=== PATIENT | female | born 1990 | race American Indian/Alaskan Native ===

== ENCOUNTER 2016-02-26 21:41 | Outpatient (CLI) | payer SELFPAY ==
[2016-02-26] MEDS ORDERED: LACTATED RINGERS 500 ML IV ONE (22:19)
[2016-02-26 22:55] LABS: Bilirubin,Urine NEG (Negative); Blood,Urine NEG (Negative); Ketones,Urine NEG (Negative); Leukocyte Esterase,Urine NEG (Negative); Mucus,Urine 3+ /HPF; Nitrite,Urine NEG (Negative); Protein,Urine <15 mg/dL mg/dL (Negative); Urobilinogen,Urine < 2.0 mg/dL (<2.0)
[2016-02-27] MEDS ORDERED: LACTATED RINGERS 1,000 ML IV SCH
[2016-02-27 00:15] VITALS: BP 113/69
[2016-02-27] MEDS: BRETHINE SUB-Q PRN ×2 (00:15→00:48)
--- NOTE | 2016-02-27 07:42 | Ultrasound Report ---
BIOPHYSICAL PROFILE: History: well-being. Technique: Transabdominal ultrasound with Doppler interrogation. 2 - breathing movements 2 - movements 2 - posture and tone 2 - Qualitative amniotic fluid volume 8 - TOTAL SCORE OF POSSIBLE 8 Heart Rate (bpm) 138
--- NOTE | 2016-02-27 07:42 | Ultrasound Report ---
OB LIMITED History: well-being, rupture of membranes. Technique: Transabdominal ultrasound with Doppler interrogation. Gestation: Davidson Amniotic Fluid: Normal MIRIAM = 23.7 cm Heart Rate: 144 BPM
== END 2016-02-27 01:24 | disposition home or self-care (01) ==
LOC: TRG 21:41
PROVIDERS: ATTEND Obstetrics & Gynecology
DX: O47.03 False labor before 37 completed weeks of gestation, third trimester (principal); Z3A.28 28 weeks gestation of pregnancy
CPT/HCPCS: 76815; 76819; 81001; J3105; J7120

== ENCOUNTER 2016-09-25 19:50 | Emergency (ER) | payer MEDICAID, OTHER ==
[2016-09-25 20:20] LABS: Basophils % (Auto) 0.6 % (0.0-1.8); Eosinophils % (Auto) 0.5 % (0.0-4.3); Hematocrit 31.8 % (30.3-42.9); Hemoglobin 10.4 gm/dl (10.1-14.3); Mean Corpuscular HGB Conc 33 % (30-34); Platelet Count 358 K/mm3 (140-440); Red Blood Count 4.64 M/mm3 (3.65-5.03); White Blood Count 7.4 K/mm3 (4.5-11.0)
[2016-09-25 20:27] LABS: Mean Corpuscular Hemoglobin 22 pg (28-32); Mean Corpuscular Volume 69 fl (79-97)
[2016-09-25 20:28] LABS: Red Cell Distribution Width 20.1 % (13.2-15.2)
[2016-09-25 20:41] LABS: Alanine Aminotransferase 8 units/L (7-56); Albumin 4.1 g/dL (3.9-5); Alkaline Phosphatase 49 units/L (35-129); Anion Gap 18 mmol/L; Bilirubin,Total < 0.20 mg/dL (0.1-1.2); Blood Urea Nitrogen 6 mg/dL (7-17); Calcium 9.5 mg/dL (8.4-10.2); Carbon Dioxide 22 mmol/L (22-30); Chloride 102.4 mmol/L (98-107); Glucose 92 mg/dL (65-100); Potassium 3.9 mmol/L (3.6-5.0); Sodium 138 mmol/L (137-145); Total Protein 8.1 g/dL (6.3-8.2)
[2016-09-25 23:49] LABS: Bilirubin,Urine NEG (Negative); Blood,Urine NEG (Negative); Ketones,Urine NEG (Negative); Leukocyte Esterase,Urine TR (Negative); Mucus,Urine 3+ /HPF; Nitrite,Urine NEG (Negative); Protein,Urine <15 mg/dL mg/dL (Negative); Urobilinogen,Urine < 2.0 mg/dL (<2.0)
--- NOTE | 2016-09-26 00:30 | Emergency Department Report ---
ED Abdominal Pain HPI - General Chief Complaint: Abdominal Pain Stated Complaint: N/V 8 WEEKS Time Seen by Provider: 09/26/16 00:06 Source: patient Mode of arrival: Ambulatory Limitations: No Limitations - History of Present Illness Initial Comments: 26-year-old female here with abdominal pain. States she is approximately 8 weeks . No vaginal bleeding or vaginal discharge. MD Complaint: abdominal pain Location: diffuse Radiation: none Migration to: no migration Severity scale (0 -10): 0 - Related Data Previous Rx's Medication Instructions Recorded Last Taken Type Ondansetron [Zofran Odt] 4 mg PO Q6HR PRN #12 tab.rapdis 09/26/16 Unknown Rx Allergies Allergy/AdvReac Type Severity Reaction Status Date / Time luna flavor Allergy Swelling Verified 09/25/16 20:00 peanut Allergy Angioedema Verified 09/25/16 20:00 procaine HCl [From Novocain] Allergy Hives Verified 02/26/16 22:23 shellfish derived Allergy Angioedema Verified 09/25/16 20:00 ED Review of Systems ROS: Stated complaint: N/V 8 WEEKS Other details as noted in HPI Comment: All other systems reviewed and negative Constitutional: denies: chills, fever Eyes: denies: eye pain, eye discharge, vision change ENT: denies: ear pain, throat pain Respiratory: denies: cough, shortness of breath, wheezing Cardiovascular: denies: chest pain, palpitations Endocrine: no symptoms reported Gastrointestinal: denies: abdominal pain, nausea, diarrhea Genitourinary: denies: urgency, dysuria, discharge Musculoskeletal: denies: back pain, joint swelling, arthralgia Skin: denies: rash, lesions Neurological: denies: headache Hematological/Lymphatic: denies: easy bleeding, easy bruising ED Past Medical Hx - Past Medical History Previous Medical History?: Yes Hx Hypertension: No Hx Diabetes: No Hx Deep Vein Thrombosis: No Hx Renal Disease: No Hx Sickle Cell Disease: No Hx Seizures: No Hx Asthma: Yes (ventolin inhaler- last used 1 mo ago) Hx HIV: No - Surgical History Past Surgical History?: No - Social History Smoking Status: Never Smoker Substance Use Type: None - Medications Home Medications: Home Medications Medication Instructions Recorded Confirmed Last Taken Type Ondansetron [Zofran Odt] 4 mg PO Q6HR PRN #12 tab.rapdis 09/26/16 Unknown Rx ED Physical Exam - General Limitations: No Limitations General appearance: alert, in no apparent distress - Head Head exam: Present: atraumatic, normocephalic - Eye Eye exam: Present: normal appearance. Absent: scleral icterus, conjunctival injection - ENT ENT exam: Present: mucous membranes moist - Neck Neck exam: Present: normal inspection. Absent: lymphadenopathy - Respiratory Respiratory exam: Present: normal lung sounds bilaterally. Absent: respiratory distress - Cardiovascular Cardiovascular Exam: Present: regular rate, normal rhythm. Absent: systolic murmur, diastolic murmur, rubs, gallop - GI/Abdominal GI/Abdominal exam: Present: soft, normal bowel sounds. Absent: distended, tenderness, guarding, rebound - Extremities Exam Extremities exam: Present: normal inspection - Back Exam Back exam: Present: normal inspection - Neurological Exam Neurological exam: Present: alert, oriented X3 - Psychiatric Psychiatric exam: Present: normal affect, normal mood - Skin Skin exam: Present: warm, dry, intact, normal color. Absent: rash ED Course Vital Signs 09/25/16 09/25/16 20:00 23:31 Temperature 98.4 F 98.6 F Pulse Rate 83 88 Respiratory 18 18 Rate Blood Pressure 121/83 126/87 O2 Sat by Pulse 100 100 Oximetry ED Medical Decision Making - Lab Data Result diagrams: 09/25/16 20:09 09/25/16 20:09 Laboratory Results - last 24 hr 09/25/16 09/25/16 09/25/16 20:09 20:09 20:09 WBC 7.4 RBC 4.64 Hgb 10.4 Hct 31.8 MCV 69 L MCH 22 L MCHC 33 RDW 20.1 H Plt Count 358 Lymph % (Auto) 24.2 [place] % (Auto) 7.6 H Eos % (Auto) 0.5 Baso % (Auto) 0.6 Lymph # 1.8 [place] # 0.6 Eos # 0.0 Baso # 0.0 Seg Neutrophils % 67.1 Seg Neutrophils # 5.0 Sodium 138 Potassium 3.9 Chloride 102.4 Carbon Dioxide 22 Anion Gap 18 BUN 6 L Creatinine 0.4 L Estimated GFR > 60 BUN/Creatinine Ratio 15.00 Glucose 92 Calcium 9.5 Total Bilirubin < 0.20 AST 12 ALT 8 Alkaline Phosphatase 49 Total Protein 8.1 Albumin 4.1 Albumin/Globulin Ratio 1.0 HCG, Quant [id number] H Urine Color Urine Turbidity Urine pH Ur Specific [place] Urine Protein Urine Glucose (UA) Urine Ketones Urine Blood Urine Nitrite Urine Bilirubin Urine Urobilinogen Ur Leukocyte Esterase Urine WBC (Auto) Urine RBC (Auto) U Epithel Cells (Auto) Urine Mucus 09/25/16 Unknown WBC RBC Hgb Hct MCV MCH MCHC RDW Plt Count Lymph % (Auto) [place] % (Auto) Eos % (Auto) Baso % (Auto) Lymph # [place] # Eos # Baso # Seg Neutrophils % Seg Neutrophils # Sodium Potassium Chloride Carbon Dioxide Anion Gap BUN Creatinine Estimated GFR BUN/Creatinine Ratio Glucose Calcium Total Bilirubin AST ALT Alkaline Phosphatase Total Protein Albumin Albumin/Globulin Ratio HCG, Quant Urine Color Yellow Urine Turbidity Clear Urine pH 6.0 Ur Specific [place] 1.028 Urine Protein <15 mg/dl Urine Glucose (UA) Neg Urine Ketones Neg Urine Blood Neg Urine Nitrite Neg Urine Bilirubin Neg Urine Urobilinogen < 2.0 Ur Leukocyte Esterase Tr Urine WBC (Auto) 2.0 Urine RBC (Auto) 3.0 U Epithel Cells (Auto) 5.0 Urine Mucus 3+ - Medical Decision Making 26-year-old female here with intermittent nausea and abdominal pain. States she believes she is 8 weeks . Exam is unremarkable. Ultrasound shows 8 week 6 day gestation. Heart rate 187. She's had no vaginal bleeding or vaginal discharge. I will plan to give her a dose of IV fluids and IV Zofran anticipate discharge. Critical care attestation.: If time is entered above; I have spent that time in minutes in the direct care of this critically ill patient, excluding procedure time. ED Disposition Clinical Impression: Hyperemesis gravidarum Disposition: DC-01 TO HOME OR SELFCARE Is pt being admited?: No Condition: Stable Instructions: Abdominal Pain (ED), Hyperemesis Gravidarum (ED) Additional Instructions: Follow-up with your kindergarten prep teacher in the next 2 or 3 days. Please start taking a vitamin. Prescriptions: Ondansetron [Zofran Odt] 4 mg PO Q6HR PRN #12 tab.rapdis PRN Reason: Nausea And Vomiting Referrals: PRIMARY CARE, [Primary Care Provider] - 3-5 Days
--- NOTE | 2016-09-26 01:12 | Ultrasound Report ---
FINAL REPORT PROCEDURE: US OB TRANSVAGINAL TECHNIQUE: Real-time transvaginal sonography of the uterus, placenta, amniotic fluid, adnexa, and fetus was performed with image documentation. Measurements were obtained to determine age/size. M-mode Doppler was used to document heartbeat. CPT 58509 HISTORY: abdominal pain in COMPARISON: No prior studies are available for comparison. FINDINGS: CRL: 22mm, which corresponds to a gestational age of: 8weeks, 6 days. Yolk Sac: Normal. Embryonic Cardiac Activity: 187 beats per minute Gestational Sac: There is a 3.6 x 2 x 1.1 centimeter subchorionic hematoma. Right Ovary: Normal. Left Ovary: Normal. Estimated delivery date: 05/02/2017 Comment: Complete anatomic survey at 18-20 weeks suggested. IMPRESSION: 1. Single living intrauterine gestation at approximately 8 weeks and 6 days 2. EDC by US 05/02/2017.
--- NOTE | 2016-09-26 01:13 | Ultrasound Report ---
FINAL REPORT PROCEDURE: US OB TRANSABDOMINAL TECHNIQUE: Real-time transabdominal sonography of the uterus, placenta, amniotic fluid, adnexa, and fetus was performed with image documentation. Measurements were obtained to determine age/size. M-mode Doppler was used to document heartbeat. HISTORY: abdominal pain in COMPARISON: No prior studies are available for comparison. FINDINGS: CRL: 22mm, which corresponds to a gestational age of: 8weeks, 6 days. Yolk Sac: Normal. Embryonic Cardiac Activity: 187 beats per minute Gestational Sac: There is a 3.6 x 2 x 1.1 centimeter subchorionic hematoma. Right Ovary: Normal. Left Ovary: Normal. Estimated delivery date: 05/02/2017 Comment: Complete anatomic survey at 18-20 weeks suggested. IMPRESSION: 1. Single living intrauterine gestation at approximately 8 weeks and 6 days 2. EDC by US 05/02/2017.
[2016-09-26] MEDS ORDERED: NACL 0.9% 1000 ML 1,000 ML IV ONE (02:02)
[2016-09-26] MEDS ORDERED: ZOFRAN IV ONE (02:02)
[2016-09-26 02:46] VITALS: BP 107/68
== END 2016-09-26 03:32 | disposition home or self-care (01) ==
LOC: ED 19:50
DX: O21.0 Mild hyperemesis gravidarum (principal); Z88.8 Allergy status to other drugs, medicaments and biological substances; Z91.018 Allergy to other foods; Z91.013 Allergy to seafood; Z3A.08 8 weeks gestation of pregnancy
CPT/HCPCS: 36415; 76801; 76817; 80053; 81001; 84702; 85025; 96361; 96374; 99284; J2405; J7030

== ENCOUNTER 2017-02-19 11:22 | Emergency (ER) | payer OTHER ==
[2017-02-19 12:49] VITALS: BP 97/63
[2017-02-19] MEDS ORDERED: TYLENOL PO ONE (12:49)
--- NOTE | 2017-02-19 13:39 | Emergency Department Report ---
HPI - General Chief Complaint: Extremity Injury, Upper Time Seen by Provider: 02/19/17 13:05 - HPI HPI: This is a 26-year-old female at 30 weeks gestation who presents to ED. Right shoulder pain 1 day. Patient states she was walking down the stairs last night and accidentally slipped down several stairs. Patient states she held onto the railing with her right hand and it was when she experienced some shoulder pain shortly after the incident. Patient denies his head or any loss of consciousness after incident. Patient states throbbing in nature localized to the right shoulder region. Patient states she is currently visiting from [place]. Patient reports good movement, she denies vaginal bleeding, leaking fluids ED Past Medical Hx - Past Medical History Hx Hypertension: No Hx Diabetes: No Hx Deep Vein Thrombosis: No Hx Renal Disease: No Hx Sickle Cell Disease: No Hx Seizures: No Hx Asthma: Yes (ventolin inhaler- last used 1 mo ago) Hx HIV: No - Surgical History Past Surgical History?: No - Social History Smoking Status: Never Smoker Substance Use Type: None - Medications Home Medications: Home Medications Medication Instructions Recorded Confirmed Last Taken Type Ondansetron [Zofran Odt] 4 mg PO Q6HR PRN #12 tab.rapdis 09/26/16 Unknown Rx Acetaminophen [Tylenol Extra 500 mg PO Q6H #30 tablet 02/19/17 Unknown Rx Strength] ED Review of Systems ROS: Stated complaint: RIGHT SHOULDER/ARM PAIN Other details as noted in HPI Constitutional: denies: chills, fever Eyes: denies: eye pain, eye discharge, vision change ENT: denies: ear pain, throat pain Respiratory: denies: cough, shortness of breath, wheezing Cardiovascular: denies: chest pain, palpitations Endocrine: no symptoms reported Gastrointestinal: denies: abdominal pain, nausea, diarrhea Genitourinary: denies: urgency, dysuria, discharge Musculoskeletal: denies: back pain, joint swelling, arthralgia Skin: denies: rash, lesions Neurological: denies: headache, weakness, paresthesias Psychiatric: denies: anxiety, depression Hematological/Lymphatic: denies: easy bleeding, easy bruising Physical Exam - Physical Exam Vital Signs: Vital Signs 02/19/17 02/19/17 12:40 12:52 Temperature 97.8 F Pulse Rate 96 H Respiratory 18 18 Rate Blood Pressure 97/63 Blood Pressure 97/63 [Left] O2 Sat by Pulse 100 Oximetry Physical Exam: GENERAL: Alert and oriented x3, no apparent distress, Normal Gait, atraumatic. HEAD: Head is normocephalic and a-traumatic. EYES: Extra ocular muscles are intact. Pupils are equal, round, and reactive to light and accommodation. NECK: Supple. Non edematous, No carotid bruits. No lymphadenopathy or thyromegaly. No C-spine tenderness LUNGS: Symetrical with respiration, No wheezing, no rales or crackles, CTAB. HEART: S1, S2 present, regular rate and rhythm without murmur, no rubs, no gallops. Non tender to palpation BACK: Full range of motion, no spinal tenderness, nontender to palpation. EXTREMITIES/MUSCULOSKELETAL: No cyanosis, clubbing, rash, lesions or edema. Full ROM bilaterally. UE/LE Pulses 2+ bilaterally. LE and UE 5+ strength bilaterally, active and passive range of motion normal of the right shoulder, right shoulder intact, no ecchymosis, no swelling, no deformity seen NEUROLOGIC: The patient is cooperative with no focal neurologic deficits.Normal speech. Normal sensation in bilateral upper and lower extremities, No loss of sensation, SKIN: Warm and dry, No lesions, No ulceration or induration present. ED Course Vital Signs 02/19/17 02/19/17 12:40 12:52 Temperature 97.8 F Pulse Rate 96 H Respiratory 18 18 Rate Blood Pressure 97/63 Blood Pressure 97/63 [Left] O2 Sat by Pulse 100 Oximetry ED Medical Decision Making - Radiology Data Radiology results: report reviewed, image reviewed FINAL REPORT EXAM: XR SHOULDER 2+V RT HISTORY: fall/RT SHOULDER PAIN TECHNIQUE: AP, Y, and oblique views of the right shoulder PRIORS: None. FINDINGS: There is no evidence of acute fracture or dislocation. Joint spaces are maintained and bony mineralization is normal. Soft tissues are unremarkable. IMPRESSION: No acute abnormality identified in the right shoulder. Transcribed By: [facility] Dictated By: AMY VEGA MD Electronically Authenticated By: AMY VEGA MD Signed Date/Time: 02/19/17 9998 Critical care attestation.: If time is entered above; I have spent that time in minutes in the direct care of this critically ill patient, excluding procedure time. ED Disposition Clinical Impression: Right anterior shoulder pain Disposition: - TO HOME OR SELFCARE Is pt being admited?: No Does the pt Need Aspirin: No Condition: Stable Instructions: Trigger Point Pain (ED), Musculoskeletal Pain (ED) Additional Instructions: Make sure to follow up with the primary care physician as discussed. Take all your medications as you've been prescribed. If you have any worsening symptoms or develop new symptoms please return to ED immediately. PCP referrals for primary care physicians are here. Follow-up as needed if you are is still in town. Apply heat therapy to the shoulder 3 times a day. Prescriptions: Acetaminophen [Tylenol Extra Strength] 500 mg PO Q6H #30 tablet Referrals: PRIMARY CARE, [Primary Care Provider] - 3-5 Days [facility] [Outside] - 3-5 Days [facility] [Outside] - 3-5 Days Forms: Work/School Release Form(ED) Time of Disposition: 16:14
--- NOTE | 2017-02-19 19:08 | XRay Report ---
FINAL REPORT EXAM: XR SHOULDER 2+V RT HISTORY: fall/RT SHOULDER PAIN TECHNIQUE: AP, Y, and oblique views of the right shoulder PRIORS: None. FINDINGS: There is no evidence of acute fracture or dislocation. Joint spaces are maintained and bony mineralization is normal. Soft tissues are unremarkable. IMPRESSION: No acute abnormality identified in the right shoulder.
== END 2017-02-19 16:25 | disposition home or self-care (01) ==
LOC: ED 11:22
DX: M25.511 Pain in right shoulder (principal)
CPT/HCPCS: 99284

== ENCOUNTER 2017-03-19 10:08 | Outpatient (CLI) | payer OTHER ==
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
[2017-03-19 12:14] VITALS: BP 103/65
[2017-03-19] MEDS ORDERED: LACTATED RINGERS 500 ML IV ONE (12:47)
[2017-03-19 13:29] LABS: Color,Urine Yellow (Yellow)
[2017-03-19 13:30] LABS: Bacteria,Urine 1+ /HPF (Negative); Bilirubin,Urine NEG (Negative); Blood,Urine NEG (Negative); Hyaline Casts,Urine 1 /LPF; Mucus,Urine 2+ /HPF; Nitrite,Urine NEG (Negative)
[2017-03-19 13:48] LABS: Amphetamine Screen,Urine PRESUMPTIVE NEGATIVE; Benzodiazepines Screen,Urine PRESUMPTIVE NEGATIVE; Cannabinoid Screen,Urine PRESUMPTIVE NEGATIVE; Cocaine Screen,Urine PRESUMPTIVE NEGATIVE; Methadone Screen,Urine PRESUMPTIVE NEGATIVE; Opiate Screen,Urine PRESUMPTIVE NEGATIVE
[2017-03-19] MEDS ORDERED: LACTATED RINGERS 1,000 ML IV SCH (14:00)
--- NOTE | 2017-03-19 15:44 | Ultrasound Report ---
The LIMITED OB ULTRASOUND: Placental evaluation. Gestation: Davidson Position: Cephalic Placenta: Fundal Placental Grade: 2 Heart Rate: 137 BPM Estimated gestational age 34 weeks one day. Impression: Unremarkable placenta.
== END 2017-03-19 14:47 | disposition home or self-care (01) ==
LOC: EDSTATUS 11:58 → TRG 12:00
PROVIDERS: ATTEND Obstetrics & Gynecology
DX: O26.893 Other specified pregnancy related conditions, third trimester (principal); V49.9XXA Car occupant (driver) (passenger) injured in unspecified traffic accident, initial encounter; Z3A.34 34 weeks gestation of pregnancy; Y93.89 Activity, other specified; Y92.89 Other specified places as the place of occurrence of the external cause; Y99.8 Other external cause status
CPT/HCPCS: 59025; 76815; 80307; 81001; 86850; 86900; 86901

== ENCOUNTER 2017-03-24 11:27 | Outpatient (CLI) | payer OTHER ==
[2017-03-24] MEDS ORDERED: BRETHINE SUB-Q ONE (12:39)
[2017-03-24] MEDS ORDERED: LACTATED RINGERS 500 ML IV ONE (12:40)
[2017-03-24 14:23] VITALS: BP 106/68
[2017-03-24 14:33] LABS: Bilirubin,Urine NEG (Negative); Blood,Urine MOD (Negative); Color,Urine Yellow (Yellow); Mucus,Urine 3+ /HPF; Nitrite,Urine NEG (Negative)
--- NOTE | 2017-03-24 16:58 | Ultrasound Report ---
FINAL REPORT EXAM: US OB LIMITED HISTORY: MIRIAM, PRESENTATION, PLACENTA LOCATION TECHNIQUE: Obstetrical ultrasound for evaluation of placenta PRIORS: None. FINDINGS: Single live intrauterine gestation identified in cephalic presentation. cardiac activity present with heart rate of 152 beats per minute Placenta is grade 1 and left lateral. It does not appear low lying. Amniotic fluid index is within normal limits 9.6 centimeters biometric measurements were not obtained IMPRESSION: Placenta and left lateral position Single live intrauterine gestation in cephalic presentation
[2017-03-25] MEDS ORDERED: PROCARDIA XL PO ONE (15:00)
== END 2017-03-24 16:50 | disposition home or self-care (01) ==
LOC: TRG 11:27
PROVIDERS: ATTEND Obstetrics & Gynecology
DX: O47.03 False labor before 37 completed weeks of gestation, third trimester (principal); Z3A.34 34 weeks gestation of pregnancy
CPT/HCPCS: 59025; 76815; 81001; 96360; 96361; J7120

== ENCOUNTER 2017-07-03 08:06 | Emergency (ER) | payer SELFPAY ==
[2017-07-03 08:17] VITALS: BP 135/93
--- NOTE | 2017-07-03 10:13 | Emergency Department Report ---
Blank Doc - Documentation Documentation: Patient is a 26-year-old female who is complaining of vaginal bleeding. Patient states she's had some light vaginal bleeding for approximately 18 days. In this interim there is only one day she did not have bleeding. Patient states that there is just minimal crampiness that she says is consistent with her menses. The patient denies any nausea vomiting or vaginal discharge or fevers chills. The patient states that she took a Prevacid test yesterday which was positive. Patient wasn't disbelieving so she took several more and they were all positive and as well. Patient will undergo a beta Quant an ultrasound here in the emergency department and will be reassessed.
--- NOTE | 2017-07-03 12:01 | Ultrasound Report ---
Pelvic and transvaginal sonography: History: Cramping and bleeding. test positive. Findings: Uterus measures 10.9 x 5.7 x 6.7 cm. There is suspicion of tiny gestational sac measuring 0.3 x 0.2 x 0.3 cm identified in the endometrium near the fundus. Too small to date. Right ovary 3.1 x 2.2 x 3.4 cm. No mass. Left ovary 3.2 x 1.7 x 2.9 cm. No mass.
--- NOTE | 2017-07-03 12:13 | Emergency Department Report ---
ED HPI - General Chief complaint: Vaginal Bleeding Stated complaint: Vaginal Bleeding Time Seen by Provider: 07/03/17 09:59 Source: patient Mode of arrival: Ambulatory Limitations: No Limitations - History of Present Illness Initial comments: 26-year-old female past medical history asthma presents with complaint of intermittent vaginal bleeding. States she has had some light vaginal bleeding. LMP 04/29/17. Denies fevers chills nausea or vomiting. States she took several tests which were positive at home. Denies dysuria or increased urinary frequency. Slight crampy suprapubic pain. MD Complaint: vaginal bleeding Onset/Timin -: week(s) Quality: cramping Associated symptoms: vaginal bleeding Vaginal bleeding: light :: Yes Last menstrual period: 04/29/17 - Related Data Previous Rx's Medication Instructions Recorded Last Taken Type 21/Iron Fu/Folic Acid 1 each PO QDAY #30 tablet 07/03/17 Unknown Rx [ Complete Caplet] Allergies Allergy/AdvReac Type Severity Reaction Status Date / Time luna flavor Allergy Swelling Verified 09/25/16 20:00 peanut Allergy Angioedema Verified 09/25/16 20:00 procaine HCl [From Novocain] Allergy Hives Verified 02/26/16 22:23 shellfish derived Allergy Angioedema Verified 09/25/16 20:00 ED Review of Systems ROS: Stated complaint: Vaginal Bleeding Other details as noted in HPI Constitutional: denies: chills, fever Eyes: denies: eye pain, eye discharge, vision change ENT: denies: ear pain, throat pain Respiratory: denies: cough, shortness of breath, wheezing Cardiovascular: denies: chest pain, palpitations Endocrine: no symptoms reported Gastrointestinal: denies: abdominal pain, nausea, diarrhea Genitourinary: as per HPI. denies: urgency, dysuria, discharge Musculoskeletal: denies: back pain, joint swelling, arthralgia Skin: denies: rash, lesions Neurological: denies: headache, weakness, paresthesias Psychiatric: denies: anxiety, depression Hematological/Lymphatic: denies: easy bleeding, easy bruising ED Past Medical Hx - Past Medical History Hx Hypertension: No Hx Diabetes: No Hx Deep Vein Thrombosis: No Hx Renal Disease: No Hx Sickle Cell Disease: No Hx Seizures: No Hx Asthma: Yes (ventolin inhaler- last used 1 mo ago) Hx HIV: No - Surgical History Past Surgical History?: No - Social History Smoking Status: Never Smoker Substance Use Type: None - Medications Home Medications: Home Medications Medication Instructions Recorded Confirmed Last Taken Type 21/Iron Fu/Folic Acid 1 each PO QDAY #30 tablet 07/03/17 Unknown Rx [ Complete Caplet] ED Physical Exam - General Limitations: No Limitations General appearance: alert, in no apparent distress - Head Head exam: Present: atraumatic, normocephalic - Eye Eye exam: Present: normal appearance, PERRL, EOMI - ENT ENT exam: Present: mucous membranes moist - Neck Neck exam: Present: normal inspection - Respiratory Respiratory exam: Present: normal lung sounds bilaterally. Absent: respiratory distress - Cardiovascular Cardiovascular Exam: Present: regular rate, normal rhythm. Absent: systolic murmur, diastolic murmur, rubs, gallop - GI/Abdominal GI/Abdominal exam: Present: soft, normal bowel sounds - Extremities Exam Extremities exam: Present: normal inspection - Back Exam Back exam: Present: normal inspection - Neurological Exam Neurological exam: Present: alert, oriented X3 - Psychiatric Psychiatric exam: Present: normal affect, normal mood - Skin Skin exam: Present: warm, dry, intact, normal color. Absent: rash ED Course Vital Signs 07/03/17 08:13 Temperature 98.4 F Pulse Rate 75 Blood Pressure 135/93 O2 Sat by Pulse 100 Oximetry ED Medical Decision Making - Medical Decision Making A/P: 1-ultrasound consistent with small gestational sac in the uterus 2-follow-up with [facility] Critical care attestation.: If time is entered above; I have spent that time in minutes in the direct care of this critically ill patient, excluding procedure time. ED Disposition Clinical Impression: Vaginal bleeding Qualifiers: Weeks of gestation: less than 8 weeks Qualified Code(s): Z3A.01 - Less than 8 weeks gestation of Disposition: DC-01 TO HOME OR SELFCARE Is pt being admited?: No Does the pt Need Aspirin: No Condition: Stable Instructions: Threatened Miscarriage (ED), (ED) Prescriptions: 21/Iron Fu/Folic Acid [ Complete Caplet] 1 each PO QDAY #30 tablet Referrals: [facility] [Provider Group] - 3-5 Days [facility] [Provider Group] - 3-5 Days [facility] [Provider Group] - 3-5 Days Forms: Work/School Release Form(ED) Time of Disposition: 12:17
== END 2017-07-03 12:35 | disposition home or self-care (01) ==
LOC: ED 08:06
DX: O20.9 Hemorrhage in early pregnancy, unspecified (principal); O99.511 Diseases of the respiratory system complicating pregnancy, first trimester; J45.909 Unspecified asthma, uncomplicated; Z3A.01 Less than 8 weeks gestation of pregnancy; Z91.018 Allergy to other foods; Z91.010 Allergy to peanuts; Z88.4 Allergy status to anesthetic agent; Z91.013 Allergy to seafood
CPT/HCPCS: 36415; 76801; 76817; 84702; 86900; 86901; 99284